=== PATIENT | female | born 1945 | race African-American/Black ===

== ENCOUNTER 2019-10-24 13:42 | Inpatient (IN) | payer OTHER ==
[~2019-10-24] VITALS: Ht 165.1 cm; Wt 68.0 kg
--- NOTE | ~2019-10-24 | EMS ---
[place] [id number] [facility] Patient Care Report Name: TATUM GONZALEZ Room #: 354-P ADM IN M.R.#: [id number] Admission: 10/24/19 Attend Phys: Micheal Lundberg MD Discharge: Date of : 47 Report #: [id number] THIS REPORT FOR: //name// Report Transmitted: 10/25/2019 02:51 EMS Care Summary [place], [place]/[facility] Incident [id number] @ 10/24/2019 12:56 Incident Location [address] [place] [address] Patient TATUM GONZALEZ Female, 74 Years 1945 Patient Address [address] [place] [address] Patient History Chronic Obstructive Pulmonary Disease (COPD),Hypertension (HTN), Patient Allergies No known allergies, Patient Medications Lasix, Xanax, Chief Complaint pt feels lightdeaded Disposition Transported No Lights/[place] Reason Sick Person Transported To [facility] Narrative PT STATES THAT PT FEELS LIGHT HEADED. PT'S FAMILY STATES THAT PT BEGAN TO GO UNRESPONSIVE WHILE TALKING TO THEM. PT'S FAMILY CHECKED PT'S BLOOD PRESSURE BECAUSE PT HAS A HISTORY OF HYPERTENSION. PT'S FAMILY STATES THEY GOT AN INTIAL BLOOD PRESSURE OF 50/30. PT DENIES ANY RECENT FEVER. PT DENIES SOA. PT DENIES [address] [address] EMS Patient Care Report Name: TATUM GONZALEZ Room #: 354-P ADM IN M.R.#: [id number] Admission: 10/24/19 Attend Phys: Micheal Lundberg MD Discharge: Date of : 47 Report #: [id number] ANY PAIN WHAT SO EVER. PT WHILE TALKING TO EMS WOULD OCCASIONAL GO UNRESPONSIVE. PT HAS NO OTHER COMPLAINTS. PT WAS FOUND SITTING ON A COUCH IN A FULL [place] POSITION. PT SPOKE IN FULL AND COMPLETE SENTENCES. PT WAS ABLE TO STAND AND PIVOT TO GET ONTO EMS COT WITH ASSISTANCE. PT WHEN ENTERING [facility] HAD A TEMP OF 100.7. PT HAS NO OTHER OBVIOUS ABNORMALITIES. Initial Vitals @13:15P: 112,SpO2: 95,NM Suspected: false @13:13P: 78,CO: 2,SpO2: 98, @13:11P: 75,R: 14,BP: 79/44,Pain: 0/10,GCS: 15,CO: 3,SpO2: 98,Revised Trauma: 11, @13:09P: 78,R: 16,BP: 70/48,Pain: 0/10,GCS: 15,Glucose: 156,SpO2: 97,Revised Trauma: 10, Assessments @13:04MENTAL:Other,Event Oriented,Place Oriented,Time Oriented,Person Oriented,SKIN:HEENT:Eyes: Left Pupil: 3-mm,Eyes: Right Pupil: 3-mm,Head/Face: No Abnormalities,Neck/Airway: No Abnormalities,LUNG SOUNDS:General: No Abnormalities,ABDOMEN:General: No Abnormalities,PELVIS//GI:EXTREMITIES:Capillary Refill: Right Upper: 3 Sec,Left Arm: No Abnormalities,Right Arm: No Abnormalities,Left Leg: No Abnormalities,Right Leg: No Abnormalities,PULSE:Radial: 1+ Thready,NEURO: Impression Syncope / Fainting Procedures @13:11Saline Lock 0cc (18 ga) Site: Antecubital-LeftResponse: UnchangedSucceeded@13:1212-Lead ECGResponse: UnchangedSucceeded@13:13Normal Saline (.9% NaCl) 100cc () Site: Antecubital-LeftResponse: ImprovedSucceeded@13:1312-Lead ECGSucceeded@13:1512-Lead ECGSucceeded@13:09ALS AssessmentResponse: UnchangedSucceeded Timeline 12:55,Call Received 12:55,Dispatch Notified 12:56,Dispatched 12:57,En Route 13:00,On Scene 13:04,At Patient 13:09,ALS Assessment,Response: UnchangedSucceeded, 13:09,BP: 70/48 M,PULSE: 78,RR: 16 R,SPO2: 97 Ox,ETCO2: ,B,PAIN: 0,GCS: 15, 13:11,BP: 79/44 M,PULSE: 75,RR: 14 R,SPO2: 98 Ox,ETCO2: ,BG: ,PAIN: 0,GCS: 15, [address] [address] EMS Patient Care Report Name: TATUM GONZALEZ Room #: 354-P ADM IN M.R.#: [id number] Admission: 10/24/19 Attend Phys: Micheal Lundberg MD Discharge: Date of : 47 Report #: [id number] 13:11,Saline Lock 0cc 18 ga Site: Antecubital-Left,Response: UnchangedSucceeded, 13:12,12-Lead ECG,Response: UnchangedSucceeded, 13:13,12-Lead ECG,Succeeded, 13:13,BP: / M,PULSE: 78,RR: R,SPO2: 98 Ox,ETCO2: ,BG: ,PAIN: ,GCS: , 13:13,Normal Saline (.9% NaCl) 100cc Site: Antecubital-Left,Response: ImprovedSucceeded, 13:15,12-Lead ECG,Succeeded, 13:15,BP: / M,PULSE: 112,RR: R,SPO2: 95 Ox,ETCO2: ,BG: ,PAIN: ,GCS: , 13:17,Depart Scene 13:30,At Destination 13:56,Call Closed Disclaimer v1.1 Copyright 2020 [employer] This EMS Care Summary contains data elements from the applicable legal record (which may be displayed differently). It is designed to provide pertinent information for the following purposes: continuity of care, clinical quality, and state data reporting. The complete legal record is available to ED staff and administrators of the receiving hospital in [facility]'s Patient Tracker. All data is provided "as is."
[2019-10-24 13:49] VITALS: BP 69/43
[2019-10-24 14:10] LABS: ABSOLUTE NEUTROPHILS 3.3 thou/uL (1.4-8.2); BASOPHILS 0.8 % (0.0-2.0); EOSINOPHILS 4.3 % (0.0-3.0); LYMPHOCYTES 29.9 % (24.0-44.0); MCH 26.2 pg (26.0-34.0); MCHC 33.2 g/dL (28.0-37.0); MCV 78.7 fL (80.0-100.0); MONOCYTES 7.1 % (1.0-8.0); PLATELET COUNT 218 thou/uL (150-400); POLYS 57.9 % (36.0-66.0); RBC 3.43 mil/uL (4.20-5.00); RDW 15.3 % (10.5-14.5); WBC 5.7 thou/uL (4.0-11.0)
[2019-10-24 14:20] LABS: ANION GAP 4 mmol/L (7-16); BUN 10 mg/dL (7-18); CALCIUM 7.9 mg/dL (8.5-10.1); CHLORIDE 101 mmol/L (98-107); CO2 33 mmol/L (21-32); CREATININE 1.3 mg/dL (0.6-1.0); GLUCOSE 112 mg/dL (74-106); POTASSIUM 3.1 mmol/L (3.5-5.1); SODIUM 138 mmol/L (136-145)
--- NOTE | 2019-10-24 14:21 | NUR ---
ROWENA: [phone]
[2019-10-24 14:30] LABS: ALBUMIN 2.9 g/dL (3.4-5.0); SGOT 25 U/L (15-37); SGPT 18 U/L (30-65); TOTAL BILIRUBIN 0.2 mg/dL (<0.1-1.0); TROPONIN-I <0.06 ng/mL (<0.06)
[2019-10-24 14:32] LABS: DIRECT BILIRUBIN < 0.1 mg/dL (<0.1-0.2)
[2019-10-24 14:44] LABS: URINE BILIRUBIN NEGATIVE (Negative); URINE BLOOD NEGATIVE (Negative); URINE CLARITY CLEAR; URINE COLOR YELLOW; URINE GLUCOSE-RANDOM* NEGATIVE (Negative); URINE KETONES TRACE (Negative); URINE LEUKOCYTES-REFLEX NEGATIVE (Negative); URINE NITRITE-REFLEX NEGATIVE (Negative); URINE PROTEIN (DIPSTICK) NEGATIVE (Negative)
[2019-10-24] MEDS ORDERED: XANAX 0.5 MG0.5 M1 PO (15:02)
[2019-10-24 16:36] LABS: AMP/METHAMP Negative (Negative); BARBITURATES Negative (Negative); BENZODIAZEPINES POSITIVE (Negative); COCAINE Negative (Negative); METHADONE Negative (Negative); OPIATES Negative (Negative); PCP Negative (Negative)
[2019-10-24] MEDS ORDERED: FLONASE 0.05%50 MCG NARES (17:16)
[2019-10-24] MEDS ORDERED: PROAIR HFA8.5 GM INH (17:17)
[2019-10-24] MEDS ORDERED: CARDIZEM LA180 M1 PO (17:17)
[2019-10-24] MEDS ORDERED: OMEPRAZOLE40 MG PO (17:17)
[2019-10-24] MEDS ORDERED: PEPCID40 MG PO (17:17)
[2019-10-24] MEDS ORDERED: LIPITOR10 MG PO (17:18)
[2019-10-24] MEDS ORDERED: LITE COAT ASPI325 MG PO (17:18)
[2019-10-24] MEDS ORDERED: ACCUNEB SO1.25 MG/1 INH (17:18)
[2019-10-24] MEDS ORDERED: BUDESONIDE1 MG/2 ML INH (17:20)
[2019-10-24] MEDS ORDERED: FLEXERIL PO (17:20)
[2019-10-24 17:43] VITALS: BP 86/56
--- NOTE | 2019-10-24 17:50 | NUR ---
ATTMPTED TO CALL REPORT BUT WAS TOLD THE RN JUST WALKED INTO A NEW ROOM
[2019-10-24 18:09] VITALS: BP 101/87
[2019-10-24 18:37] VITALS: BP 110/72
--- NOTE | 2019-10-24 19:54 | NUR ---
Pt was admitted to room 354 from the emergency dept. Pt awakened from nap but is responding appropriately. Pt is oriented to month, year, place, and self. Pt settled into room and oriented by CATHY Aviles. Vital signs were obtained by CONTRACT CLERK AUTOMOBILE except temp which is 97.2 orally. Pt was given turkey sandwhich tray. Call light in reach and bed alarm is activated. Report was given to RN asssuming care who will do pt admission. O2 is at 2 liters. Breathing is non-labored.
[2019-10-24 20:59] VITALS: BP 132/84
[2019-10-24 21:24] LABS: BE(vivo) -1.7 mmol/L (-2 to +3); HCO3 24.3 mmol/L (22.0-26.0); PCO2 46.7 mmHg (35.0-45.0); pH 7.334 (7.360-7.450); sO2 96.7 % (92.0-98.0)
[2019-10-24 23:16] VITALS: BP 118/82
[2019-10-25 03:48] VITALS: BP 124/77
--- NOTE | 2019-10-25 04:53 | NUR ---
Pt progressing slowly towards d/c goals. VSS 99.2 this am. Sats 99% on 2LNC. Lungs continue to have wheezes , Rt tx given . Presently she is resting quietly. Assisting pt to bsc or uses bedpan to decrease SOA. No bleeding noted. She refused her lovenox due to she feels like that is why she contnues to have abdominal pain years later after she received a shot in her abdomen. explaind rationale for lovenox . PT stil refused.
[2019-10-25 08:03] VITALS: BP 126/80
--- NOTE | 2019-10-25 08:58 | EKG ---
[facility] [place] [address] ELECTROCARDIOGRAM REPORT Name: TATUM GONZALEZ Room #: 354-P ADM IN M.R.#: [id number] Admission: 10/24/19 Attend Phys: Micheal Lundberg MD Discharge: Date of : 47 Report #: [id number] THIS REPORT FOR: cc: Ria Keita MD, Karla L. MD Lundgren,Leo Adams MD [facility] ~ THIS REPORT FOR: //name// [facility] ED Test Date: 2019-10-24 Test Time: 14:31:21 Pat Name: TATUM GONZALEZ Department: Room: [facility] Gender: F Sack Filler: BREA : 1945 Requested By: Terell Metcalf Order Number: [id number] MD: Leo Berrios Measurements Intervals [place] Rate: 79 P: 55 [place]: 208 QRS: 65 QRSD: 99 T: 64 QT: 452 QTc: 519 Interpretive Statements Sinus rhythm Atrial premature complex Anteroseptal infarct, age indeterminate Prolonged QT interval Baseline wander in lead(s) II No previous ECG available for comparison Electronically Signed On 10-25-2019 8:56:22 CDT by Leo Berrios [email or web address] <ELECTRONICALLY SIGNED> By: Leo Berrios MD, [facility] 10/25/19 0856 1431 1431 Leo Berrios MD, FAC /EPI
[2019-10-25 09:16] LABS: HEMATOCRIT 31.7 % (37.0-47.0); HEMOGLOBIN 10.1 gm/dL (12.0-15.0); MCH 25.4 pg (26.0-34.0); MCHC 31.8 g/dL (28.0-37.0); MCV 79.6 fL (80.0-100.0); RBC 3.98 mil/uL (4.20-5.00); RDW 15.3 % (10.5-14.5); WBC 6.1 thou/uL (4.0-11.0)
[2019-10-25 09:25] LABS: CALCIUM 8.2 mg/dL (8.5-10.1); CREATININE 0.8 mg/dL (0.6-1.0); POTASSIUM 3.1 mmol/L (3.5-5.1)
--- NOTE | 2019-10-25 10:22 | NUR ---
INITIAL ASSESSMENT: Received consult for discharge planning. SW reviewed chart and spoke with nursing and attending physicain. Pt was admitted from home due to weakness. Pt is in Enhanced Isolation to r/o COVID-19. Test is pending. SW spoke with pt via phone. Introduced role of SW. Pt is alert/orientated x 4. Pt reports she lives at home with her granddtr. Prior to admission, pt was independent with ADLs. No use of DME. No steps to navigate. Pt has used HH in the past, but unsure of provider. No hx of post-acute placement. Pt's PCP is Dr. Ria Keita. Pt denies having any discharge needs at this time. Therapy to be ordered if needed. SW is following to assist as needed with discharge planning.
--- NOTE | 2019-10-25 12:04 | NUR ---
PT AFEBRILE. VITALS STABLE. TACHYCARDIC 110's - HOSPITALIST MADE AWARE - RESUMED HOME CARDIAC MEDS. NO RESP DISTRESS. BREATHING COMFORTABLY ON HOME DOSE O2 - 2L. COVID19 SWAB NEGATIVE - HOSPITALIST NOTIFIED. NO INSTRUCTION TO RESWAB AT THIS TIME.
[2019-10-25 16:30] VITALS: BP 143/90
[2019-10-25 19:45] VITALS: BP 109/67
--- NOTE | 2019-10-25 20:20 | NUR ---
PER ARCHAEOLOGIST, PT TO REMAIN IN ENHANCED PRECAUTIONS AT THIS TIME DUE TO FEVER IN LAST 24 HOURS.
--- NOTE | 2019-10-25 22:44 | NUR ---
PT PROGRESSING TOWARDS D/C GOALS. HER COVID CAME BACK NEGATIVE X2. CYRUS DURAN METAL WIRE COATING OPERATOR AND ART GLASS DESIGNER NOTIFIED. PT WILL STAY HERE ORDERED BY SUNITA KAMARA DUE TO PT HAD A TEMP WITHIN THE LAST [address] ON MONITOR. ENC PO FLUIDS AND HS SNACK. PT COMPLIANT WITH SNACK TONIGHT. SCDS ON . AGAIN REFUSED LOVENOX SHOT. XANAX GIVEN. PT LESS ANXIOUS TODAY. VSS AFEBRILE. LUNGS DIMINISHED AND UNLABORED ON 2LNC. REINFORCED FALL PRECAUTIONS, BED DOWN. CALL LIGHT IN REACH. BED LOCKED IN LOW POSITION WITH ALARM ON. WILL CONTINUE TO MONITOR PT FOR S/S DISTRESS HOURLY.
[2019-10-25 23:28] VITALS: BP 123/57
[2019-10-26] VITALS (7 sets, daily range): BP systolic 106–145; BP diastolic 69–90
--- NOTE | 2019-10-26 00:02 | NUR ---
COVID TEST #2 IS NEGATIVE AND RESULT CALLED TO CYRUS DURAN NP AND PEPE OTTOCOMMUNICATIONS OFFICER. PEPE CONTACTED SUNITA KAMARA. PT WILL STAY IN ISOLATION DUE TO SHE HAS HAD A TEMP WITHIN THE LAST 24 HRS
--- NOTE | 2019-10-26 03:53 | NUR ---
Pt c/o SOA after geetting from BSC to bed. Wheezes noted. See VS. 98.9 rr24 sat WNL. RT tx given. Pt now falling asleep resting quietly. Will continue to monitor for s/s resp distress. Progressing slowly towards d/c goals.
[2019-10-26 06:08] LABS: CALCIUM 8.6 mg/dL (8.5-10.1); CREATININE 0.8 mg/dL (0.6-1.0); POTASSIUM 3.8 mmol/L (3.5-5.1)
--- NOTE | 2019-10-26 17:08 | NUR ---
PT IS A&OX3, BUT PT HAS ANXIETY AT TIME, PT DOES NOT HAVE FEVER FOR 24HR, PT WAS NEGAIVE COVID TESTS , BUT PT STILL HAS SOB AND HR 100-120 WITH ACTIVIES, PT IS OFF ISOLATION AND PT WILL GO TO M/S T FLOOR PER ORDER.PT'S DAUGHTER HAS NOTIFIED.
--- NOTE | 2019-10-26 19:35 | NUR ---
ASSUMMED PT CARE AT APPROXIMATELY 1830. PT A&O X4. PT VITAL SIGNS STABLE. PT COMFORTABLE IN BED. PT DENIES HAVING FURTHER CONCERNS. FALL PRECAUTIONS IN PLACE. PT DENIES HAVING CHEST PAIN. PT DENIES HAVING ACUTE PAIN.
--- NOTE | 2019-10-27 00:36 | NUR ---
PT AMBULATING TO BATHROOM WITH ASSIST X1 AND IS TOLERATING FAIR. TYLENOL PROVIDING PAIN RELIEF. RESTING COMFORTABLY. NO NEEDS VOICED. CALL LIGHT WITHIN REACH. WILL CONTINUE TO PROVIDE FREQUENT OBSERVATION.
[2019-10-27 04:10] LABS: HEMATOCRIT 31.8 % (37.0-47.0); HEMOGLOBIN 10.1 gm/dL (12.0-15.0); MCH 25.3 pg (26.0-34.0); MCHC 31.8 g/dL (28.0-37.0); MCV 79.5 fL (80.0-100.0); RDW 15.5 % (10.5-14.5); WBC 5.4 thou/uL (4.0-11.0)
[2019-10-27 04:25] LABS: CALCIUM 9.1 mg/dL (8.5-10.1); CREATININE 0.9 mg/dL (0.6-1.0); POTASSIUM 3.5 mmol/L (3.5-5.1); TOTAL BILIRUBIN 0.3 mg/dL (<0.1-1.0); TOTAL PROTEIN 6.6 g/dL (6.4-8.2)
[2019-10-27 05:00] VITALS: BP 116/79
[2019-10-27 05:02] LABS: FOLIC ACID 15.8 ng/mL (8.6-58.9); TSH 1.018 uIU/mL (0.358-3.740)
[2019-10-27 07:45] VITALS: BP 123/80
[2019-10-27 07:48] VITALS: BP 115/83
[2019-10-27 07:50] VITALS: BP 119/84
--- NOTE | 2019-10-27 13:52 | NUR ---
ASSUMED CARE AT 0700, SHIFT ASSESMENT DONE, MEDS GIVEN, VSS. DENIES PAIN, NAUSEA, VOMITING. UP WITH STANDBY ASSIST. REMAINS ON 4L NC. GOAL IS TO WEAN HER OFF OF O2. NOT SURE THE REASON OF HYPOTENTION, CTA PE ORDERED, AWIAIING FOR TEST TO BE DONE. STILL TACHY, BELOW 110'S, NS ORDERED. WILL CONTINUE TO ASSESS AND ASSIST WITH ADLs NEEDED.
[2019-10-27 15:55] VITALS: BP 113/76
[2019-10-27 19:54] VITALS: BP 112/79
[2019-10-28 04:35] VITALS: BP 103/67
[2019-10-28 05:38] VITALS: BP 108/69
[2019-10-28 06:09] LABS: ABSOLUTE NEUTROPHILS 2.3 thou/uL (1.4-8.2); BASOPHILS 0.5 % (0.0-2.0); EOSINOPHILS 4.8 % (0.0-3.0); HEMATOCRIT 29.6 % (37.0-47.0); HEMOGLOBIN 9.7 gm/dL (12.0-15.0); LYMPHOCYTES 43.3 % (24.0-44.0); MCH 25.7 pg (26.0-34.0); MCHC 32.8 g/dL (28.0-37.0); MCV 78.3 fL (80.0-100.0); MONOCYTES 8.2 % (1.0-8.0); PLATELET COUNT 251 thou/uL (150-400); POLYS 43.2 % (36.0-66.0); RBC 3.78 mil/uL (4.20-5.00); RDW 15.5 % (10.5-14.5); WBC 5.4 thou/uL (4.0-11.0)
[2019-10-28 06:20] LABS: CALCIUM 9.1 mg/dL (8.5-10.1); CREATININE 0.8 mg/dL (0.6-1.0); MAGNESIUM 1.8 mg/dL (1.8-2.4); PHOSPHORUS 3.9 mg/dL (2.5-4.9); POTASSIUM 3.8 mmol/L (3.5-5.1)
[2019-10-28 06:26] LABS: % SATURATION 12 % (20-39); IRON 34 ug/dL (50-170); TIBC 291 ug/dL (250-450)
[2019-10-28 09:00] VITALS: BP 110/70
[2019-10-28] MEDS ORDERED: CARDIZEM CD120 MG PO (14:24)
[2019-10-28] MEDS ORDERED: ASA81BEC PO (14:25)
[2019-10-28 14:45] VITALS: BP 110/70
--- NOTE | 2019-10-28 16:34 | NUR ---
Assumed patient care at 0715. Vital signs stable, LSCTA (diminished), O2 @ 2.5-3 Liters per nasal cannula. abdomen is soft and non-tender, BS x's 4, skin is clean, warm, dry and intact. Patient is pleasant and cooperative, takes medications as ordered. She has been ambulating with a steady gait. PT Pro completed. Patient Discharged at 1620 with money that was in Security and with all of her clothing/personal effects. Patient also left with Discharge Instructions which she verbalized an understanding of before signing.
== END 2019-10-28 17:23 | disposition home or self-care (01) | DRG 314 ==
LOC: ER 13:42 → 3W 17:12 → EROBS 17:12 → ER 18:09 → 3W 18:09 → 2N 10-26 18:16 → 4W 10-28 05:15
PROVIDERS: Emergency Medicine; Internal Medicine; ADMIT Hospitalist
DX: I95.9 Hypotension, unspecified (principal); N17.0 Acute kidney failure with tubular necrosis; R00.0 Tachycardia, unspecified; E87.6 Hypokalemia; I10 Essential (primary) hypertension; J44.9 Chronic obstructive pulmonary disease, unspecified; F41.9 Anxiety disorder, unspecified; D64.9 Anemia, unspecified; E83.42 Hypomagnesemia; Z60.2 Problems related to living alone; Z99.81 Dependence on supplemental oxygen; Z79.899 Other long term (current) drug therapy; Z79.82 Long term (current) use of aspirin; Z88.0 Allergy status to penicillin; Z87.891 Personal history of nicotine dependence; Z03.818 Encounter for observation for suspected exposure to other biological agents ruled out
CPT/HCPCS: 10080; 10081; 10797; 10879

== ENCOUNTER 2020-01-21 14:53 | Emergency (ER) | payer OTHER ==
[~2020-01-21] VITALS: Ht 162.6 cm; Wt 59.0 kg
[~2020-01-21 14:53] MED LIST: ACCUNEB SO1.25 MG/1 INH; ASA81BEC PO; BUDESONIDE1 MG/2 ML INH; CARDIZEM CD120 MG PO; CARDIZEM LA180 M1 PO; FLEXERIL PO; FLONASE 0.05%50 MCG NARES; LIPITOR10 MG PO; LITE COAT ASPI325 MG PO; OMEPRAZOLE40 MG PO; PEPCID40 MG PO; PROAIR HFA8.5 GM INH; XANAX 0.5 MG0.5 M1 PO
[2020-01-21] MEDS ORDERED: VALSARTAN-HCTZ1 EAC1 PO (15:36)
[2020-01-21 16:43] LABS: ABSOLUTE NEUTROPHILS 5.8 thou/uL (1.4-8.2); BASOPHILS 0.7 % (0.0-2.0); EOSINOPHILS 2.7 % (0.0-3.0); HEMATOCRIT 35.7 % (37.0-47.0); HEMOGLOBIN 11.6 gm/dL (12.0-15.0); LYMPHOCYTES 20.3 % (24.0-44.0); MCH 25.2 pg (26.0-34.0); MCHC 32.3 g/dL (28.0-37.0); MCV 77.8 fL (80.0-100.0); MONOCYTES 6.7 % (1.0-8.0); PLATELET COUNT 305 thou/uL (150-400); POLYS 69.6 % (36.0-66.0); RBC 4.59 mil/uL (4.20-5.00); RDW 15.6 % (10.5-14.5); WBC 8.3 thou/uL (4.0-11.0)
[2020-01-21 16:51] LABS: CALCIUM 9.7 mg/dL (8.5-10.1)
[2020-01-21 16:53] LABS: POTASSIUM 2.9 mmol/L (3.5-5.1)
[2020-01-21] MEDS ORDERED: CYCLOBENZAPRINE5 MG PO (18:51)
[2020-01-21] MEDS ORDERED: PREDNISONE 20 M20 MG PO (18:51)
[2020-01-21 19:51] VITALS: BP 145/87
--- NOTE | 2020-01-23 08:11 | EKG ---
[facility] [place] [address] ELECTROCARDIOGRAM REPORT Name: TATUM GONZALEZ Room #: DEP [facility]#: [id number] Admission: 01/21/20 Attend Phys: Discharge: 01/21/20 Date of : 47 Report #: [id number] THIS REPORT FOR: cc: Ria Keita MD, Karla L. MD Couchonnal, Luis F. MD ~ THIS REPORT FOR: //name// [facility] ED Test Date: 2020-01-21 Test Time: 16:26:09 Pat Name: TATUM GONZALEZ Department: Room: Gender: South Asian History Professor: [facility] : 1945 Requested By: Denny Tucker Order Number: [id number] : Ruben Valerio Measurements Intervals [place] Rate: 100 P: 82 SC: 191 QRS: 62 QRSD: 91 T: 75 QT: 369 QTc: 476 Interpretive Statements Sinus tachycardia Consider right atrial enlargement Compared to ECG 10/24/2019 14:31:21 Electronically Signed On 01-23-2020 8:11:19 CDT by Ruben Valerio [email or web address] <ELECTRONICALLY SIGNED> By: Ruben Valerio MD 01/23/2011 1626 1626 Ruben Valerio MD /EPI
--- NOTE | 2020-01-23 08:12 | EKG ---
[facility] [place] [address] ELECTROCARDIOGRAM REPORT Name: TATUM GONZALEZ Room #: DEP [facility]#: [id number] Admission: 01/21/20 Attend Phys: Discharge: 01/21/20 Date of : 47 Report #: [id number] THIS REPORT FOR: cc: Ria Keita MD, Karla L. MD Couchonnal, Luis F. MD ~ THIS REPORT FOR: //name// [facility] ED Test Date: 2020-01-21 Test Time: 19:46:56 Pat Name: TATUM GONZALEZ Department: Room: Gender: F Ecommerce Marketing Specialist: no : 1945 Requested By: Adelso Segal Order Number: [id number] : Ruben Valerio Measurements Intervals [place] Rate: 119 P: 90 MT: 180 QRS: 62 QRSD: 83 T: 64 QT: 317 QTc: 447 Interpretive Statements Sinus tachycardia Borderline low voltage, extremity leads Anteroseptal infarct, age indeterminate Compared to ECG 01/21/2020 16:26:09 Myocardial infarct finding now present ST (T wave) deviation no longer present Electronically Signed On 01-23-2020 8:12:07 CDT by Ruben Valerio [email or web address] <ELECTRONICALLY SIGNED> By: Ruben Valerio MD 01/23/20811 45 45 Ruben Valerio MD /EPI
== END 2020-01-21 19:51 | disposition home or self-care (01) ==
LOC: ER 14:53
PROVIDERS: Emergency Medicine
DX: S16.1XXA Strain of muscle, fascia and tendon at neck level, initial encounter (principal); E87.6 Hypokalemia; J44.9 Chronic obstructive pulmonary disease, unspecified; I10 Essential (primary) hypertension; Z79.899 Other long term (current) drug therapy; Z88.0 Allergy status to penicillin; Z87.891 Personal history of nicotine dependence; X58.XXXA Exposure to other specified factors, initial encounter; Y93.89 Activity, other specified; Y92.89 Other specified places as the place of occurrence of the external cause; Y99.8 Other external cause status

== ENCOUNTER 2020-03-17 19:03 | Emergency (ER) | payer OTHER ==
[~2020-03-17] VITALS: Ht 162.6 cm; Wt 61.2 kg
[~2020-03-17 19:03] MED LIST changes: +CYCLOBENZAPRINE5 MG PO; +PREDNISONE 20 M20 MG PO; +VALSARTAN-HCTZ1 EAC1 PO
[2020-03-17] MEDS ORDERED: KEFLEX500 M1 PO (20:04)
[2020-03-17 20:33] VITALS: BP 96/63
== END 2020-03-17 20:33 | disposition home or self-care (01) ==
LOC: ER 19:03
DX: L03.116 Cellulitis of left lower limb (principal); I10 Essential (primary) hypertension; J44.9 Chronic obstructive pulmonary disease, unspecified; Z79.899 Other long term (current) drug therapy; Z87.891 Personal history of nicotine dependence; Z88.0 Allergy status to penicillin

== ENCOUNTER 2020-09-14 23:05 | Inpatient (IN) | payer OTHER ==
[~2020-09-14] VITALS: Ht 162.6 cm; Wt 63.5 kg
[~2020-09-14 23:05] MED LIST changes: +KEFLEX500 M1 PO
[2020-09-14 23:10] VITALS: BP 127/91
[2020-09-14 23:34] LABS: ABSOLUTE NEUTROPHILS 4.6 thou/uL (1.4-8.2); BASOPHILS 0.6 % (0.0-2.0); HEMATOCRIT 32.1 % (37.0-47.0); HEMOGLOBIN 10.5 gm/dL (12.0-15.0); LYMPHOCYTES 31.9 % (24.0-44.0); MCH 25.6 pg (26.0-34.0); MCHC 32.8 g/dL (28.0-37.0); MONOCYTES 9.2 % (1.0-8.0); PLATELET COUNT 289 thou/uL (150-400); POLYS 50.3 % (36.0-66.0); RBC 4.12 mil/uL (4.20-5.00); RDW 16.5 % (10.5-14.5); WBC 9.2 thou/uL (4.0-11.0)
[2020-09-14 23:47] LABS: ANION GAP 7 mmol/L (7-16); BUN 12 mg/dL (7-18); CALCIUM 8.8 mg/dL (8.5-10.1); CHLORIDE 103 mmol/L (98-107); CO2 33 mmol/L (21-32); GLUCOSE 131 mg/dL (74-106); POTASSIUM 3.5 mmol/L (3.5-5.1); SODIUM 143 mmol/L (136-145)
[2020-09-14 23:52] LABS: ALBUMIN 3.6 g/dL (3.4-5.0); SGOT 25 U/L (15-37); SGPT 23 U/L (14-59); TOTAL BILIRUBIN 0.2 mg/dL (0.2-1.0); TOTAL PROTEIN 7.6 g/dL (6.4-8.2); TROPONIN-I <0.06 ng/mL (<0.06)
[2020-09-15] VITALS (41 sets, daily range): BP systolic 85–131; BP diastolic 46–86
[2020-09-15] MEDS ORDERED: VALSARTAN-HCTZ1 EAC1 PO (03:32)
[2020-09-15 05:20] LABS: HEMATOCRIT 34.5 % (37.0-47.0); HEMOGLOBIN 10.8 gm/dL (12.0-15.0); MCH 24.5 pg (26.0-34.0); MCHC 31.4 g/dL (28.0-37.0); MCV 78.2 fL (80.0-100.0); RBC 4.41 mil/uL (4.20-5.00); RDW 16.6 % (10.5-14.5); WBC 7.5 thou/uL (4.0-11.0)
--- NOTE | 2020-09-15 06:59 | EKG ---
[place] [address] [facility] [place] [address] ELECTROCARDIOGRAM REPORT Name: TATUM GONZALEZ Room #: 170-10 ADM IN M.R.#: [id number] Admission: 09/15/20 Attend Phys: Cristina Vasquez Discharge: Date of : 47 Report #: [id number] [facility] ED Test Date: 2020-09-14 Test Time: 23:18:22 Pat Name: TATUM GONZALEZ Department: Room: 170 Gender: F Boatbuilder Apprentice Wood: RADHA : 1945 Requested By: Paloma Marc Order Number: [id number] MD: Vahe Carias Measurements Intervals [place] Rate: 126 P: 77 MO: 168 QRS: 27 QRSD: 60 T: 102 QT: 314 QTc: 455 Interpretive Statements Sinus tachycardia Borderline low voltage, extremity leads Borderline repolarization abnormality Compared to ECG 01/21/2020 19:46:56 Myocardial infarct finding no longer present Electronically Signed On 09-15-2020 6:59:41 CDT by Vahe Carias [email or web address] <ELECTRONICALLY SIGNED> By: Vahe Carias MD, [facility] 09/15/20 0659 2318 17 Vahe Carias MD, FACC /EPI
--- NOTE | 2020-09-15 11:54 | NUR ---
chart review. unable to visit with riley molina. discussed during los, possible move out of icu. noted she was here last october 2019, hx covid 2020. possible had covid vaccines already. has home oxygen and breathing tx machine. lived with granddaughter, need to verify if she still with granddaughter. pcp listed satinder jean-baptiste. will cont following as needed for dc needs.
--- NOTE | 2020-09-15 18:22 | NUR ---
PT ARRIVED TO FLOOR 0715. ABLE TO RECITE OWN HX, ORIENTATION X4. ON BASELINE 02 OF 2.5L. BOUT OF ANXIETY IN AM WHEN TRANFERRING TO BED FROM COMMODE CAUSED FURTHER EXACERBATIO OF COPD W/RR IN 40'S. SPOKE TO DR. SMITH REGARDING INCIDENT DURING AM ROUNDS. CLONAZIPAM STARTED FOR ANXIETY... PT MORE COMFORTABLE THROUGHOUT THE DAY. PROGRESSING IN NURSING PLAN OF CARE.
[2020-09-16] VITALS (11 sets, daily range): BP systolic 93–129; BP diastolic 28–74
[2020-09-16 05:12] LABS: BE(vivo) 0.3 mmol/L (-2 to +3); HCO3 25.4 mmol/L (22.0-26.0); PCO2 43.1 mmHg (35.0-45.0); PO2 80.8 mmHg (80.0-100.0); pH 7.388 (7.360-7.450); sO2 95.8 % (92.0-98.0)
[2020-09-16 05:24] LABS: HEMATOCRIT 32.6 % (37.0-47.0); HEMOGLOBIN 10.3 gm/dL (12.0-15.0); MCH 24.9 pg (26.0-34.0); MCHC 31.6 g/dL (28.0-37.0); MCV 78.8 fL (80.0-100.0); RBC 4.13 mil/uL (4.20-5.00); RDW 16.3 % (10.5-14.5); WBC 10.1 thou/uL (4.0-11.0)
[2020-09-16 05:40] LABS: CALCIUM 9.2 mg/dL (8.5-10.1); POTASSIUM 4.8 mmol/L (3.5-5.1)
--- NOTE | 2020-09-16 09:03 | NUR ---
Late Note- Consult [phone] was completed by this sewer system supervisor on September 15, 2020.
--- NOTE | 2020-09-16 18:14 | NUR ---
PT REAMINS ON BASE 2.5 LITERS. BECAME VERY ANXIOUS AND DYSPNIC W/EXERTION AND AMBULATION TO COMMODE. RR IN 40'S. APPETITE IMPROVING REPORTED BY PT. PROGRESSING IN PLAN OF CARE TOWARDS DISCHARGE.
[2020-09-17] VITALS: BP 101/54
[2020-09-17 04:00] VITALS: BP 105/64
[2020-09-17 08:00] VITALS: BP 106/71
[2020-09-17 12:00] VITALS: BP 99/56
[2020-09-17 12:06] LABS: HEMATOCRIT 32.4 % (37.0-47.0); HEMOGLOBIN 10.3 gm/dL (12.0-15.0); MCH 24.9 pg (26.0-34.0); MCHC 31.9 g/dL (28.0-37.0); MCV 78.1 fL (80.0-100.0); RBC 4.14 mil/uL (4.20-5.00); RDW 16.3 % (10.5-14.5); WBC 10.4 thou/uL (4.0-11.0)
--- NOTE | 2020-09-17 13:21 | NUR ---
Note Given: Y Facility List Provided: Y Facility Rohan: None chosen at this time Daisy Andersen NP discussed BPCI with this pt 09/17/2020
--- NOTE | 2020-09-17 14:58 | NUR ---
PT RESTING COMFORTABLY TODAY. UP TO CHAIR MORE THAN IN BED. PT AFEBRILE, ADEQUATE UOP, NO BM, APPROPRIATE APPETITE. NO C/O PAIN. PT'S DAUGHTER AT BEDSIDE AND BOTH HER AND PT HAVE BEEN UPDATED AND EDUCATED ON PT CONDITION AND POC. PT SLOWLY PROGRESSING TOWARDS POC. NO INCREASED WOB.
[2020-09-17 16:00] VITALS: BP 109/64
[2020-09-17 20:02] VITALS: BP 111/67
[2020-09-18 04:13] VITALS: BP 108/56
--- NOTE | 2020-09-18 05:44 | NUR ---
Patient in distress upon awakening from sleep. Unable to stop coughing or hyperventilating. RT did a PRN breathing treatment and was able to help patient catch her breath. Education about controlling deep breathing and respiratory status done. Will continue to monitor. Patient progressing towards goals.
--- NOTE | 2020-09-18 11:13 | NUR ---
ALERT AND ORIENTED AND HAS DENIED PAIN, VITALS STABLE. TOLERATING DIET W/O NAUSEA. DAUGHTER CALLED EARLIER FOR UPDATE, DID NOT HAVE PRIVACY CODE STATING NO ONE HAD GIVEN IT TO HER. I ASKED PATIENT PERMISSION TO UPDATE HER AND PROVIDE HER WITH THE CODE AND PATIENT VERBALLY AGREED SO I UPDATED HER AND GAVE HER CODE FOR FUTURE REFERENCE. PATIENT IS MS-TELE STATUS.
[2020-09-18 12:25] VITALS: BP 116/73
--- NOTE | 2020-09-18 13:39 | NUR ---
chart review. discussed during los, dc ready for monday09/19/20. cm visited with pt and daughter nevin hollingsworth # [phone] at bedside. cm cont to wear mask and glasses, daughter wearing her mask as well. education on hh needs for dc, [facility] list choice provided, referral to be sent to [facility], [facility] to call daughter to set up visits. dcp: home with [facility] # [phone] (pt, ot, and nursing). bedside nurse to fax dc orders to [phone]
[2020-09-18 13:47] VITALS: BP 116/73
--- NOTE | 2020-09-18 14:56 | NUR ---
FAXED REFERRAL TO [facility]. CONFIRMED WITH PUSHPA/ZELALEM THAT SHE RECEIVED AND THEY WILL CALL DAUGHTER, ROWENA GONZALEZ TO SCHEDULE VISITS. DISCHARGE ORDERS AND SUMMARY TO BE FAXED AT DISCHARGE. [facility] P [phone]; FAX [phone]; P[facility] Frye [phone]
--- NOTE | 2020-09-18 15:27 | NUR ---
FAXED REFERRAL TO [facility]. CONFIRMED WITH JOHNATHAN/INTAKE THAT THEY CAN ACCEPT PATIENT WHEN DISCHARGED. THEY WILL BEGIN SERVICES ON MONDAY OR MONDAY (). THEY WILL CONTACT THE DAUGHTER, ROWENA GONZALEZ TO SCHEDULE VISITS. DISCHARGE ORDERS AND SUMMARY TO BE FAXED AT DISCHARGE. [facility] P [phone]; FAX [phone]
--- NOTE | 2020-09-18 16:10 | NUR ---
PATIENT TRANSFERRED TO 209 WITH BELONGINGS.
--- NOTE | 2020-09-18 17:25 | NUR ---
PT IS PROGRESSING TOWARDS DISCHARGE, WAS REPORTED BY CERTIFIED NEURODIAGNOSTIC TECHNOLOGIST THAT PT IS BEING MONITORED OVERNIGHT AND WILL BE SEEN BY PT/OT TOMORROW THEN DISCHARGED. NO ISSUES AT THIS TIME. PT IS COMFORTABLE AND IS WATCHING TV. LUNGS ARE WHEEZY AND BILATERALLY DIMINISHED THOUGH THIS MAY BE BASELINE. PT IS ON 2.5L NC SINCE ARRIVAL. NO ACUTE CHANGES
[2020-09-18 19:11] VITALS: BP 118/72
[2020-09-19 04:27] VITALS: BP 129/78
[2020-09-19 04:36] LABS: HEMATOCRIT 32.5 % (37.0-47.0); HEMOGLOBIN 10.4 gm/dL (12.0-15.0); MCH 24.7 pg (26.0-34.0); MCHC 31.9 g/dL (28.0-37.0); MCV 77.5 fL (80.0-100.0); RBC 4.19 mil/uL (4.20-5.00); RDW 16.8 % (10.5-14.5); WBC 8.2 thou/uL (4.0-11.0)
--- NOTE | 2020-09-19 05:24 | NUR ---
SLEPT MOST OF SHIFT. WORKING ON GOALS AND PLAN OF CARE FOR NOC. ASSISTED UP TO BATHROOM NEEDED. CONTINUE TO ASSES. BREATHING TREATMENTS NEEDED.
[2020-09-19 07:37] VITALS: BP 118/78
[2020-09-19 11:15] VITALS: BP 130/81
[2020-09-19] MEDS ORDERED: LEVOFLOXACIN750 MG PO (11:51)
[2020-09-19] MEDS ORDERED: IPRAT-ALBUT 0.5-3 ML INH (11:51)
[2020-09-19] MEDS ORDERED: XANAX 0.5 MG0.5 M1 PO (11:51)
[2020-09-19] MEDS ORDERED: COZAAR100 MG PO (11:51)
[2020-09-19] MEDS ORDERED: PREDNISONE 10 M10 MG PO (11:51)
--- NOTE | 2020-09-19 13:21 | NUR ---
ASSESSMENT CHARTED. PT ALERT AND ORIENTED. VSS. SOB NOTED WITH ACTIVITY. ORDERS GIVEN TO DISCHARGE PT TO H/H. DISCHARGE INSTRUCTIONS GIVEN TO PT AND THE DAUGHTER. THEY BOTH VERBERLISED UNDERSTANDING. DISCHARGE ORDERS AND SUMMARY FAXED TO [facility].
== END 2020-09-19 13:20 | disposition home health service (06) | DRG 189 ==
LOC: ER 23:05 → EROBS 09-15 02:45 → ICU 09-15 02:45 → 2N 09-18 15:46
PROVIDERS: Emergency Medicine; Internal Medicine Pulmonary Disease; Nurse Practitioner Family; ADMIT Internal Medicine; ATTEND Internal Medicine
DX: J96.21 Acute and chronic respiratory failure with hypoxia (principal); J44.1 Chronic obstructive pulmonary disease with (acute) exacerbation; R00.0 Tachycardia, unspecified; K21.9 Gastro-esophageal reflux disease without esophagitis; E78.5 Hyperlipidemia, unspecified; F41.1 Generalized anxiety disorder; I10 Essential (primary) hypertension; Z88.0 Allergy status to penicillin; Z87.891 Personal history of nicotine dependence; Z79.82 Long term (current) use of aspirin; Z79.899 Other long term (current) drug therapy; Z91.81 History of falling
CPT/HCPCS: 10081; 10203

== ENCOUNTER 2021-03-22 10:19 | Emergency (ER) | payer OTHER ==
[~2021-03-22] VITALS: Ht 162.6 cm; Wt 59.9 kg
[~2021-03-22 10:19] MED LIST changes: +COZAAR100 MG PO; +IPRAT-ALBUT 0.5-3 ML INH; +LEVOFLOXACIN750 MG PO; +PREDNISONE 10 M10 MG PO
[2021-03-22 10:24] VITALS: BP 141/86
[2021-03-22] MEDS ORDERED: VITAMIN D21250 MCG PO (11:37)
[2021-03-22 11:38] LABS: ABSOLUTE NEUTROPHILS 4.6 thou/uL (1.4-8.2); BASOPHILS 0.5 % (0.0-2.0); EOSINOPHILS 3.5 % (0.0-3.0); HEMATOCRIT 32.8 % (37.0-47.0); HEMOGLOBIN 10.2 gm/dL (12.0-15.0); LYMPHOCYTES 18.6 % (24.0-44.0); MCH 24.6 pg (26.0-34.0); MCHC 31.2 g/dL (28.0-37.0); MCV 78.6 fL (80.0-100.0); MONOCYTES 6.6 % (1.0-8.0); PLATELET COUNT 264 thou/uL (150-400); POLYS 70.8 % (36.0-66.0); RBC 4.17 mil/uL (4.20-5.00); RDW 16.8 % (10.5-14.5); WBC 6.5 thou/uL (4.0-11.0)
[2021-03-22] MEDS ORDERED: XANAX 0.5 MG0.5 MG PO (11:38)
[2021-03-22 12:01] LABS: CALCIUM 9.3 mg/dL (8.5-10.1); CREATININE 0.9 mg/dL (0.6-1.0)
[2021-03-22 12:08] LABS: ALBUMIN 3.4 g/dL (3.4-5.0); TOTAL BILIRUBIN 0.4 mg/dL (0.2-1.0)
--- NOTE | 2021-03-22 15:37 | EKG ---
[place] [address] [facility] [place] [address] ELECTROCARDIOGRAM REPORT Name: TATUM GONZALEZ [id number] Admission: 03/22/21 Attend Phys: Discharge: 03/22/21 Date of : 47 Report #: [id number] [facility] ED Test Date: 2021-03-22 Test Time: 10:26:17 Pat Name: TATUM GONZALEZ Department: Room: Gender: F Service Vehicle Operator: MONICA : 1945 Requested By: Moisés George Order Number: [id number] MD: Vahe Carias Measurements Intervals [place] Rate: 98 P: 80 SD: 165 QRS: 26 QRSD: 86 T: 62 QT: 358 QTc: 458 Interpretive Statements Sinus rhythm Anteroseptal infarct, age indeterminate Compared to ECG 09/14/2020 23:18:22 Myocardial infarct finding now present Sinus tachycardia no longer present Electronically Signed On 03-22-2021 15:37:23 CDT by Vahe Carias [email or web address] <ELECTRONICALLY SIGNED> By: Vahe Carias MD, [facility] 03/22/21 1537 D: 10/1025 25 Vahe Carias MD, FACC /EPI
== END 2021-03-22 14:15 | disposition home or self-care (01) ==
LOC: ER 10:19
PROVIDERS: Emergency Medicine
DX: F41.9 Anxiety disorder, unspecified (principal); K22.4 Dyskinesia of esophagus; J44.9 Chronic obstructive pulmonary disease, unspecified; I10 Essential (primary) hypertension; Z79.899 Other long term (current) drug therapy; Z88.0 Allergy status to penicillin; Z87.891 Personal history of nicotine dependence

== ENCOUNTER 2021-06-08 16:34 | Emergency (ER) | payer OTHER ==
[~2021-06-08] VITALS: Ht 162.6 cm; Wt 61.2 kg
[~2021-06-08 16:34] MED LIST changes: +AZITHROMYCIN500 MG PO; +VITAMIN D21250 MCG PO; +XANAX 0.5 MG0.5 MG PO
[2021-06-08 17:17] VITALS: BP 134/79
[2021-06-08 23:29] LABS: BASOPHILS 0.3 % (0.0-2.0); EOSINOPHILS 0.2 % (0.0-3.0); HEMATOCRIT 34.3 % (37.0-47.0); HEMOGLOBIN 10.9 gm/dL (12.0-15.0); LYMPHOCYTES 4.1 % (24.0-44.0); MCHC 31.6 g/dL (28.0-37.0); MONOCYTES 1.4 % (1.0-8.0); PLATELET COUNT 332 thou/uL (150-400); RBC 4.35 mil/uL (4.20-5.00); RDW 15.9 % (10.5-14.5); WBC 8.5 thou/uL (4.0-11.0)
[2021-06-08 23:30] LABS: CALCIUM 9.3 mg/dL (8.5-10.1); CREATININE 0.8 mg/dL (0.6-1.0); POTASSIUM 3.6 mmol/L (3.5-5.1)
[2021-06-08 23:41] LABS: ALBUMIN 3.8 g/dL (3.4-5.0); TOTAL BILIRUBIN 0.5 mg/dL (0.2-1.0); TOTAL PROTEIN 8.2 g/dL (6.4-8.2)
--- NOTE | 2021-06-09 07:56 | EKG ---
[place] [address] [facility] [place] [address] ELECTROCARDIOGRAM REPORT Name: TATUM GONZALEZ [facility] #: [id number] Admission: 06/08/21 Attend Phys: Discharge: 06/09/21 Date of : 47 Report #: [id number] [facility] ED Test Date: 2021-06-08 Test Time: 21:58:03 Pat Name: TATUM GONZALEZ Department: Room: Gender: F Seat Scooper Machine: bro : 1945 Requested By: Moisés George Order Number: [id number] MD: Vahe Carias Measurements Intervals [place] Rate: 115 P: 84 [place]: 162 QRS: 41 QRSD: 89 T: 68 QT: 337 QTc: 466 Interpretive Statements Sinus tachycardia Probable left atrial enlargement Compared to ECG 03/22/2021 10:26:17 Sinus rhythm no longer present Myocardial infarct finding no longer present Electronically Signed On 06-09-2021 7:56:27 MICROPALEONTOLOGIST by Vahe Carias [email or web address] <ELECTRONICALLY SIGNED> By: Vahe Carias MD, [facility] 06/09/21 0756 2158 2158 Vahe Carias MD, FACC /EPI
== END 2021-06-09 00:12 | disposition home or self-care (01) ==
LOC: ER 16:34
PROVIDERS: Emergency Medicine
DX: J44.1 Chronic obstructive pulmonary disease with (acute) exacerbation (principal); Z20.822 Contact with and (suspected) exposure to COVID-19; R06.02 Shortness of breath; R07.89 Other chest pain; I10 Essential (primary) hypertension; F41.9 Anxiety disorder, unspecified; Z79.899 Other long term (current) drug therapy; Z88.0 Allergy status to penicillin; Z87.891 Personal history of nicotine dependence

== ENCOUNTER 2021-07-02 11:29 | Emergency (ER) | payer OTHER ==
[~2021-07-02] VITALS: Ht 162.6 cm; Wt 59.0 kg
[2021-07-02 12:09] LABS: HEMATOCRIT 32.5 % (37.0-47.0); HEMOGLOBIN 10.2 gm/dL (12.0-15.0); MCH 24.8 pg (26.0-34.0); MCHC 31.5 g/dL (28.0-37.0); MCV 78.6 fL (80.0-100.0); RBC 4.13 mil/uL (4.20-5.00); RDW 16.5 % (10.5-14.5); WBC 4.4 thou/uL (4.0-11.0)
[2021-07-02 12:16] LABS: CALCIUM 9.2 mg/dL (8.5-10.1); CREATININE 0.9 mg/dL (0.6-1.0); POTASSIUM 3.5 mmol/L (3.5-5.1)
[2021-07-02 12:29] LABS: ALBUMIN 3.5 g/dL (3.4-5.0); TOTAL BILIRUBIN 0.3 mg/dL (0.2-1.0); TOTAL PROTEIN 6.6 g/dL (6.4-8.2)
[2021-07-02] MEDS ORDERED: PREDNISONE 20 M20 MG PO (12:42)
[2021-07-02 13:01] VITALS: BP 107/68
--- NOTE | 2021-07-02 13:40 | EKG ---
[facility] [place] [address] ELECTROCARDIOGRAM REPORT Name: TATUM GONZALEZ [facility] [id number] Admission: 07/02/21 Attend Phys: Discharge: 07/02/21 Date of : 47 Report #: [id number] [facility] ED Test Date: 2021-07-02 Test Time: 11:37:50 Pat Name: TATUM GONZALEZ Department: Room: Gender: F Museum Curator: JOVAN : 1945 Requested By: Inna Mata Order Number: [id number] MD: Vahe Carias Measurements Intervals [place] Rate: 87 P: 86 [place]: 165 QRS: 45 QRSD: 93 T: 75 QT: 380 QTc: 457 Interpretive Statements Sinus rhythm Anteroseptal infarct, age indeterminate Minimal ST elevation, inferior leads Compared to ECG 06/08/2021 21:58:03 Myocardial infarct finding now present ST (T wave) deviation now present Sinus tachycardia no longer present Electronically Signed On 07-02-2021 13:40:15 LEAD VULCANIZING OPERATOR by Vahe Carias [email or web address] <ELECTRONICALLY SIGNED> By: Vahe Carias MD, [facility] 07/02/21 1340 1137 113 Vahe Carias MD, FAC /EPI
== END 2021-07-02 13:02 | disposition home or self-care (01) ==
LOC: ER 11:29
PROVIDERS: Student in an Organized Health Care Education/Training Program
DX: R06.02 Shortness of breath (principal); Z20.822 Contact with and (suspected) exposure to COVID-19; J44.9 Chronic obstructive pulmonary disease, unspecified; I10 Essential (primary) hypertension; F41.9 Anxiety disorder, unspecified; Z79.899 Other long term (current) drug therapy; Z88.0 Allergy status to penicillin; Z87.891 Personal history of nicotine dependence

== ENCOUNTER 2021-08-02 13:14 | Emergency (ER) | payer OTHER ==
[~2021-08-02] VITALS: Ht 162.6 cm; Wt 59.0 kg
[2021-08-02 13:17] VITALS: BP 153/103
[2021-08-02] MEDS ORDERED: ANECREAM 4% KI1 EACH TRANSDERM (13:45)
[2021-08-02] MEDS ORDERED: NYSTATIN100000 UNI SW&SWALLOW (13:45)
[2021-08-02] MEDS ORDERED: DOXYCYCLINE 10100 MG PO (13:45)
== END 2021-08-02 13:56 | disposition home or self-care (01) ==
LOC: ER 13:14
DX: M62.838 Other muscle spasm (principal); B37.9 Candidiasis, unspecified; J32.9 Chronic sinusitis, unspecified; J44.9 Chronic obstructive pulmonary disease, unspecified; I10 Essential (primary) hypertension; F41.9 Anxiety disorder, unspecified; Z79.899 Other long term (current) drug therapy; Z88.0 Allergy status to penicillin; Z87.891 Personal history of nicotine dependence